=== PATIENT | female | born 1975 | race Caucasian/White ===

== ENCOUNTER → 2017-01-02 | Outpatient (CLI) | payer MEDICAID | LOC: FIMAGING 10:15 | PROVIDERS: ATTEND Registered Nurse | DX: N63 Unspecified lump in breast (principal) | CPT/HCPCS: G0204 ==

== ENCOUNTER → 2017-07-08 | Outpatient (CLI) | payer MEDICAID | LOC: FIMAGING 12:12 | DX: N60.02 Solitary cyst of left breast (principal) ==

== ENCOUNTER → 2018-09-04 | Outpatient (CLI) | payer MEDICAID | LOC: FIMAGING 14:03 | PROVIDERS: ATTEND Physician Assistant | DX: N60.11 Diffuse cystic mastopathy of right breast (principal); L57.0 Actinic keratosis ==